=== PATIENT | male | born 1975 | race Caucasian/White ===

== ENCOUNTER 2022-01-14 02:30 | Day surgery (SDC) | payer OTHER, SELFPAY ==
[2022-01-02 10:59] VITALS: BMI 28.8
[2022-01-14 06:35] VITALS: BP 114/78; PULSE 80; RESP 18; TEMP 36.2; O2SAT 99; BMI 28.5
[2022-01-14] MEDS: LACTATED RINGERS 1,000 ML 150 ML IV CONT (06:54)
--- NOTE | 2022-01-14 07:40 | P.PNAN_ITS ---
Anes - Initial Pre Proc Eval Procedure: Operation Date: 01/14/22 08:00 Proposed Procedures p Screening Colonoscopy - Yakov Escobar MD Date/Time: 01/14/22 07:40 Surgeon: Yakov Escobar MD Pre Op Diagnosis: neoplasm screening Patient Data Age: 46 Gender: M Height: 1.78 m Weight: 90.2 kg Last Vital Signs Temp 97.2 F L 01/14/22 06:35 Pulse 80 01/14/22 06:35 Resp 18 01/14/22 06:35 BP 114/78 01/14/22 06:35 Pulse Ox 99 01/14/22 06:35 O2 Del Method Room Air 01/14/22 06:35 Allergies Allergy/AdvReac Type Severity Reaction Status Date / Time No Known Allergies Allergy Verified 01/14/22 06:42 Home Medications Medication Instructions Recorded Confirmed Type multivitamin (Daily Multi-Vitamin 1 tablet PO DAILY 10/11/20 01/14/22 History tablet) Patient hx anesthesia problems: none Family hx anesthesia problems: none Results Review: All pre-operative results and documents have been reviewed as part of the pre- operative evaluation. [facility] Family History Family History Father Diabetes mellitus Hypertension Mother Breast cancer Social History Social History Smoking status: Never smoker Alcohol intake: current Drinks per week: 5 Substance use: never Substance use type: does not use Living arrangements: with family Spiritual care concerns: No Anes - Eval Final PreProcedure Day of Procedure 01/14/22 07:40 Patient weight: normal Heart: regular rate and rhythm Lungs: clear to auscultation Airway: Mallampati scale class II Neurological: alert and oriented Last oral intake: >/= 8 hours ASA classification: I Emergent: no Anesthetic plan: proceed Anesthesia type and monitoring: general GIVS and standard monitoring Results Review: All pre-operative results and documents have been reviewed as part of the pre- operative evaluation. Informed Consent: The patient's anesthetic plan and its attendant risks and benefits were discussed with the patient/family/POA. Questions were solicited and answers provided to the satisfaction of the patient/family/POA.
--- NOTE | 2022-01-14 07:52 | WPDGICN ---
Assessment and Plan Assessment and plan (1) Encounter for screening colonoscopy: Code(s): Z12.11 - Encounter for screening for malignant neoplasm of colon Status: Acute Assessment and Plan: Patient presents today for screening colonoscopy. He appears to be at average risk for colon polyps. Further recommendations will be given after endoscopy. GI Consult Note Consult date/time: 01/14/22 07:52 Reason for consult: Neoplasia screening. HPI: Nate Jones is a 46 year old male Presents for screening colonoscopy. Patient has current weight appetite and bowel movement are normal. Patient denies abdominal pain. He has had no bleeding. Family history is noncontributory. Patient presents today for neoplasia screening. Review of Systems Review of Systems: Review of systems noncontributory. [facility] Family History Family History Father Diabetes mellitus Hypertension Mother Breast cancer Social History Social History Smoking status: Never smoker Alcohol intake: current Drinks per week: 5 Substance use: never Substance use type: does not use Living arrangements: with family Spiritual care concerns: No Meds Home Medications and Allergies Home Medications Medication Instructions Recorded Confirmed Type multivitamin (Daily Multi-Vitamin 1 tablet PO DAILY 10/11/20 01/14/22 History tablet) Allergies Allergy/AdvReac Type Severity Reaction Status Date / Time No Known Allergies Allergy Verified 01/14/22 06:42 Vital Signs Vital Signs - 24 hr 01/14/22 06:35 Temperature 97.2 F L Pulse Rate 80 Respiratory Rate 18 Blood Pressure 114/78 Pulse Oximetry 99 Oxygen Delivery Room Air Exam Narrative: Physical exam reveals patient to be alert. Vital signs stable. HEENT exam is unremarkable. Patient is anicteric. Lungs are clear to auscultation and percussion. Heart is without murmur or extra sounds. Abdominal exam bowel sounds are present soft nontender with no organomegaly. Digital external rectal exam is normal.
[2022-01-14 08:28] VITALS: BP 107/74; PULSE 65; RESP 15; O2SAT 99
[2022-01-14 08:38] VITALS: BP 113/75; PULSE 79; RESP 17; O2SAT 99
[2022-01-14 08:47] VITALS: BP 109/78; PULSE 61; RESP 17; O2SAT 100
== END 2022-01-14 08:56 | disposition home or self-care (01) ==
PROVIDERS: PCP Physician Assistant; Visit Provider Internal Medicine Gastroenterology
PROC: 0DJD8ZZ Inspection of Lower Intestinal Tract, Via Natural or Artificial Opening Endoscopic (ICD-10-PCS; CPT 45378; principal; 2022-01-14 08:00)
DX: Z12.11 Encounter for screening for malignant neoplasm of colon (principal); K64.8 Other hemorrhoids
CPT/HCPCS: 45378; J2704; J7120